=== PATIENT | female | born 2005 | race African-American/Black ===

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

== ENCOUNTER 2024-01-28 13:28 | Emergency (ER) | payer OTHER ==
[2024-01-28] MEDS ORDERED: Acetaminophen 500 MG TAB ONE (17:31)
== END 2024-01-28 17:50 | disposition home or self-care (01) ==
LOC: ERS 13:28
DX: O99.891 Other specified diseases and conditions complicating pregnancy (principal); R22.1 Localized swelling, mass and lump, neck; O10.911 Unspecified pre-existing hypertension complicating pregnancy, first trimester; Z3A.08 8 weeks gestation of pregnancy
CPT/HCPCS: 87081; 87428; 87430; 99283

== ENCOUNTER 2024-04-04 00:53 | Emergency (ER) | payer BC, OTHER | END 2024-04-04 01:00 | disposition left against medical advice (07) | LOC: ERS 00:53 | DX: Z53.21 Procedure and treatment not carried out due to patient leaving prior to being seen by health care provider (principal) ==